=== PATIENT | male | born 1950 | race Caucasian/White ===

== ENCOUNTER → 2018-12-20 08:36 | Outpatient (CLI) | payer BC, SELFPAY ==
[2018-12-20 10:15] LABS: Absolute Lymphocyte Count 1.77 X10^3/ul (0.83-4.51); Absolute Neutrophil Count 3.4 X10^3/uL (2.0-7.7); Basophil# 0.07 X10^3/uL; Basophil% 1.2 % (0-1); Eosinophil# 0.23 X10^3/uL; Eosinophils% 3.9 % (0-5); Hematocrit 46.4 % (40-54); Hemoglobin 15.9 g/dl (13.0-16.5); Lymphocyte # 1.77 X10^3/ul (4.0); Lymphocyte % 29.9 % (19-41); Mean Corp Hgb Conc 34.3 g/gl (32-36); Mean Corpuscular Hgb 32.1 pg (27.0-32.0); Mean Corpuscular Volume 93.7 fL (80-94); Mean Platelet Vol. 11.7 fl (6.2-12.0); Monocyte# 0.43 X10^3/uL; Monocyte% 7.3 % (0-10); Neutrophil # 3.41 X10^3/uL (2.7-7.7); Neutrophil % 57.5 % (47-70); Platelet Count 176 K/mm3 (150-450); RBC Distribution Width CV 12.6 % (11.6-14.6); RBC Distribution Width SD 42.5 fl (35.1-43.9); Red Blood Count 4.95 M/mm3 (4.6-6.2); White Blood Count 5.9 K/mm3 (4.4-11.0)
[2018-12-20 10:19] LABS: POSITIVE COUNT NO; POSITIVE DIFFERENTIAL NO; POSITIVE MORPHOLOGY NO
[2018-12-20 10:31] LABS: Anion Gap 12 (5-15); BUN 18 mg/dL (7-18); BUN/Creat Ratio 20.5 RATIO (10-20); Chloride 106 mmol/L (98-107); Creatinine, Serum 0.88 mg/dL (0.70-1.30); EST Glomerular Filtration Rate 91 mL/min (>60); Est Glom Filt Rate - Afr Amer 111 mL/min (>60); Glucose 105 mg/dL (74-106); PSA,Total - Annual Screen 1.44 ng/mL (0.00-4.00); Potassium 4.1 mmol/L (3.5-5.1); Sodium Level 142 mmol/L (136-145)
== END ==
PROVIDERS: Family Provider Family Medicine; PCP Family Medicine; Visit Provider Family Medicine
DX: I10 Essential (primary) hypertension (principal); Z12.5 Encounter for screening for malignant neoplasm of prostate; G40.209 Localization-related (focal) (partial) symptomatic epilepsy and epileptic syndromes with complex partial seizures, not intractable, without status epilepticus
CPT/HCPCS: 36415; 80048; 84153; 85025; G0103

== ENCOUNTER → 2020-01-13 08:05 | Outpatient (CLI) | payer BC, SELFPAY ==
[2020-01-13 10:33] LABS: Anion Gap 4 (5-15); BUN 18 mg/dL (7-18); BUN/Creat Ratio 21.9 RATIO (10-20); Calcium,Total 9.3 mg/dL (8.5-10.1); Chloride 111 mmol/L (98-107); Cholesterol 192 mg/dL (200); Creatinine, Serum 0.82 mg/dL (0.70-1.30); EST Glomerular Filtration Rate 98 mL/min (>60); Est Glom Filt Rate - Afr Amer 119 mL/min (>60); Glucose 97 mg/dL (74-106); High Density Lipoprotein 38 mg/dL; PSA,Total - Annual Screen 1.07 ng/mL (0.00-4.00); Potassium 4.6 mmol/L (3.5-5.1); Sodium Level 142 mmol/L (136-145); Triglycerides 73 mg/dL; Very Low Density Lipoprotein 15 mg/dL (5-40)
== END ==
PROVIDERS: PCP Family Medicine; Visit Provider Family Medicine
DX: I10 Essential (primary) hypertension (principal); Z12.5 Encounter for screening for malignant neoplasm of prostate
CPT/HCPCS: 36415; 80048; 80061; 84153; G0103

== ENCOUNTER → 2021-01-11 11:37 | Outpatient (CLI) | payer MEDICARE, OTHER, SELFPAY ==
[2021-01-11 15:30] LABS: Absolute Lymphocyte Count 2.71 X10^3/uL (0.83-4.51); Absolute Neutrophil Count 3.6 X10^3/uL (2.0-7.7); Basophil# 0.12 X10^3/uL; Basophil% 1.6 % (0-1); Eosinophil# 0.28 X10^3/uL; Eosinophils% 3.8 % (0-5); Hematocrit 48.8 % (40-54); Hemoglobin 16.4 g/dL (13.0-16.5); Lymphocyte # 2.71 X10^3/ul (4.0); Mean Corp Hgb Conc 33.6 g/dL (32-36); Mean Corpuscular Hgb 31.7 pg (27.0-32.0); Mean Corpuscular Volume 94.2 fL (80-94); Mean Platelet Vol. 11.6 fl (6.2-12.0); Monocyte% 8.2 % (0-10); NRBC Flagged by Analyzer 0 % (0-5); Neutrophil # 3.58 X10^3/uL (2.7-7.7); Neutrophil % 48.9 % (47-70); Platelet Count 179 K/mm3 (150-450); RBC Distribution Width CV 12.4 % (11.6-14.6); RBC Distribution Width SD 42.7 fl (35.1-43.9); Red Blood Count 5.18 M/mm3 (4.6-6.2); White Blood Count 7.3 K/mm3 (4.4-11.0)
[2021-01-11 15:42] LABS: AST(SGOT) 95 U/L (15-37); Alanine Aminotransfer ALT/SGPT 128 U/L (16-61); Albumin, Serum 3.7 g/dL (3.2-5.0); Alkaline Phosphatase 76 U/L (45-117); Anion Gap 7 (5-15); BUN 14 mg/dL (7-18); BUN/Creat Ratio 16.4 RATIO (10-20); Calcium,Total 9.2 mg/dL (8.5-10.1); Chloride 109 mmol/L (98-107); Cholesterol 180 mg/dL (200); Creatinine, Serum 0.85 mg/dL (0.70-1.30); EST Glomerular Filtration Rate 94 mL/min (>60); Est Glom Filt Rate - Afr Amer 114 mL/min (>60); Globulin 3.7 g/dL (2.2-4.2); Glucose 83 mg/dL (74-106); High Density Lipoprotein 37 mg/dL; PSA,Total - Annual Screen 1.25 ng/mL (0.00-4.00); Potassium 4.3 mmol/L (3.5-5.1); Protein, Total 7.4 g/dL (6.4-8.2); Sodium Level 141 mmol/L (136-145); Triglycerides 124 mg/dL; Very Low Density Lipoprotein 25 mg/dL (5-40)
== END ==
PROVIDERS: PCP Family Medicine; Referring Provider Family Medicine; Visit Provider Family Medicine
DX: I10 Essential (primary) hypertension (principal); Z12.5 Encounter for screening for malignant neoplasm of prostate
CPT/HCPCS: 36415; 80053; 80061; 84153; 85025; G0103

== ENCOUNTER → 2021-01-16 08:33 | Outpatient (CLI) | payer MEDICARE, OTHER, SELFPAY ==
--- NOTE | 2021-01-16 08:37 | VDLE_ITS ---
Reason For Study: Swelling of limb Procedure LEFT This is a venous duplex using B-mode, color GSV is normal. flow and spectral Doppler. CFV is compressible, spontaneous, phasic, Exam performed in department. competent, and demonstrates normal A preliminary report was called and/or faxed augmentation. to Jillian. FV is compressible, spontaneous, phasic, competent and demonstrates normal augmentation. POP V is compressible, spontaneous, phasic, competent and demonstrates normal augmentation. T/P Trunk is compressible. PTV is compressible. LT PerV is compressible. Interpretation Summary Deep veins of the left lower extremity are patent and compressible segmentally. There is no evidence of left lower extremity deep vein thrombosis. Valvular competence appears intact within the proximal deep venous system on the left . The left great saphenous vein appears patent and compressible segmentally. Ordering Physician: Behzad Walsh Referring Physician: Behzad Walsh Performed By: Mary Ellen Delgado RVT
== END ==
PROVIDERS: PCP Family Medicine; Referring Provider Family Medicine; Visit Provider Family Medicine
DX: M79.89 Other specified soft tissue disorders (principal)
CPT/HCPCS: 93971

== ENCOUNTER → 2021-01-18 09:20 | Outpatient (CLI) | payer MEDICARE, OTHER, SELFPAY ==
--- NOTE | 2021-01-18 09:23 | US_ITS ---
STUDY: ABDOMINAL ULTRASOUND - RIGHT UPPER QUADRANT REASON FOR VISIT: Male, 70 years old Elevated Liver Enzymes TECHNIQUE: Ultrasound evaluation of the right upper quadrant was performed with real-time and static fox-scale imaging. TECHNICAL QUALITY: Limited. Examination limited by bowel gas. COMPARISON: None. FINDINGS: Liver: The liver measures 15.2 cm. There is increased echogenicity consistent with fatty infiltration. The bile ducts are within normal limits. There is hepatic color flow. The direction of portal flow is hepatopetal. There is no demonstrated mass lesion. Gallbladder: There is a contracted gallbladder. The gallbladder wall measures 3 mm. There is a negative sonographic Elizabeth''s sign. There is no pericholecystic fluid. There are no gallstones. Common Bile Duct (C.B.D.): The common bile duct measures 5 mm. Pancreas: There is nonvisualization of the pancreas due to overlying bowel gas. Right Kidney: Normal size of the right kidney. The right kidney measures 11.6 cm x 6.37 x 4.8 cm. Normal renal cortex. The right cortex measures 1.5 cm. There is no demonstrated renal mass or cyst. There is no right hydronephrosis. US/Abdomen Limited IMPRESSION: Fatty infiltration of the liver. Contracted gallbladder. Electronically Signed: Buck Chaves MD at 12:19 EST , Service support ,
== END ==
PROVIDERS: PCP Family Medicine; Referring Provider Family Medicine; Visit Provider Family Medicine
DX: R74.8 Abnormal levels of other serum enzymes (principal)
CPT/HCPCS: 76705

== ENCOUNTER 2022-01-14 09:17 | Outpatient (CLI) | payer MEDICARE, OTHER, SELFPAY ==
[2022-01-14 10:17] LABS: Absolute Lymphocyte Count 2.42 X10^3/uL (0.83-4.51); Absolute Neutrophil Count 2.9 X10^3/uL (2.0-7.7); Basophil# 0.12 X10^3/uL; Basophil% 1.9 % (0-1); Eosinophil# 0.34 X10^3/uL; Eosinophils% 5.3 % (0-5); Hematocrit 46.2 % (40-54); Lymphocyte # 2.42 X10^3/ul (0.83-4.51); Lymphocyte % 37.8 % (19-41); Mean Corp Hgb Conc 34.6 g/dL (32-36); Mean Corpuscular Hgb 32.2 pg (27.0-32.0); Mean Platelet Vol. 11.1 fl (6.2-12.0); Monocyte# 0.58 X10^3/uL; NRBC Flagged by Analyzer 0 % (0-5); Neutrophil # 2.92 X10^3/uL (2.7-7.7); Neutrophil % 45.5 % (47-70); Platelet Count 196 K/mm3 (150-450); RBC Distribution Width SD 44.1 fl (35.1-43.9); Red Blood Count 4.97 M/mm3 (4.6-6.2); White Blood Count 6.4 K/mm3 (4.4-11.0)
[2022-01-14 10:49] LABS: AST(SGOT) 64 U/L (15-37); Alanine Aminotransfer ALT/SGPT 96 U/L (16-61); Albumin, Serum 3.5 g/dL (3.2-5.0); Alkaline Phosphatase 75 U/L (45-117); Anion Gap 3 (5-15); BUN 16 mg/dL (7-18); BUN/Creat Ratio 19.3 RATIO (10-20); Bilirubin, Direct 0.15 mg/dL (0.00-0.30); Calcium,Total 9.2 mg/dL (8.5-10.1); Chloride 110 mmol/L (98-107); Cholesterol 162 mg/dL (200); Creatinine, Serum 0.83 mg/dL (0.70-1.30); EST Glomerular Filtration Rate 97 mL/min (>60); Est Glom Filt Rate - Afr Amer 118 mL/min (>60); Globulin 3.6 g/dL (2.2-4.2); Glucose 97 mg/dL (74-106); High Density Lipoprotein 36 mg/dL; PSA,Total - Annual Screen 1.77 ng/mL (0.00-4.00); Potassium 4.3 mmol/L (3.5-5.1); Protein, Total 7.1 g/dL (6.4-8.2); Sodium Level 140 mmol/L (136-145); Triglycerides 91 mg/dL; Very Low Density Lipoprotein 18 mg/dL (5-40)
== END 2022-01-14 23:59 | disposition home or self-care (01) ==
LOC: MFPLAB 09:23
PROVIDERS: PCP Family Medicine; Referring Provider Family Medicine; Visit Provider Family Medicine
DX: I10 Essential (primary) hypertension (principal); Z12.5 Encounter for screening for malignant neoplasm of prostate; R74.8 Abnormal levels of other serum enzymes; Z13.220 Encounter for screening for lipoid disorders
CPT/HCPCS: 36415; 80053; 80061; 82248; 84153; 85025; G0103

== ENCOUNTER → 2023-01-23 | Outpatient (CLI) | payer MEDICARE, OTHER, SELFPAY ==
--- NOTE | 2023-01-23 10:47 | VDLE_ITS ---
Reason For Study: Swelling RIGHT LEFT CFV is compressible, spontaneous, phasic, CFV is compressible, spontaneous, phasic, competent and demonstrates normal competent, and demonstrates normal augmentation. augmentation. Procedure FV is compressible, spontaneous, phasic, This is a venous duplex using B-mode, color competent and demonstrates normal flow and spectral Doppler. augmentation. Exam performed in department. POP V is compressible, spontaneous, phasic, A preliminary report was called and/or faxed competent and demonstrates normal to Mikayla WALSH. augmentation. T/P Trunk is compressible. Acute deep vein thrombosis is noted in the PTV and Peroneal V. Acute superficial vein thrombosis is noted in the GSV from prox to distal calf. Thrombus filled varicose veins noted in the prox to distal calf. VL/Venous Duplex US, Unilateral Interpretation Summary Acute deep vein thrombosis is noted in the left posterior tibial vein, left per capone vein. Acute superficial vein thrombosis is noted in the left great saphenous vein and adjacent varicosities in the calf. Ordering Physician: Danilo Melton Referring Physician: Danilo Melton MD Performed By: Mary Ellen Delgado RVT
== END | disposition home or self-care (01) ==
LOC: CVS 10:44
PROVIDERS: PCP Family Medicine; Visit Provider Family Medicine
DX: M79.89 Other specified soft tissue disorders (principal)
CPT/HCPCS: 93971

== ENCOUNTER → 2023-08-13 | Outpatient (CLI) | payer MEDICARE, OTHER, SELFPAY ==
--- NOTE | 2023-08-13 13:28 | VDLE_ITS ---
Reason For Study: LLE PAIN RIGHT LEFT CFV is compressible, spontaneous, phasic, CFV is compressible, spontaneous, phasic, competent and demonstrates normal competent, and demonstrates normal augmentation. augmentation. Procedure FV is compressible, spontaneous, phasic, This is a venous duplex using B-mode, color competent and demonstrates normal flow and spectral Doppler. augmentation. Exam performed in department. POP V is compressible, spontaneous, phasic, A preliminary report was called and/or faxed competent and demonstrates normal to Dr. Melton @ 2:05 pm @ [phone]. augmentation. T/P Trunk is compressible. PTV is compressible. LT PerV is compressible. GSV is compressible from prox thigh to SFJ. GSV mid thigh to ankle are NON-COMPRESSIBLE. Varicosities noted in the prox calf area are NON-COMPRESSIBLE. VL/Venous Duplex US, Unilateral Interpretation Summary Acute superficial vein thrombosis noted in the left great saphenous vein from m id thigh to ankle, left calf varicosities. Deep veins of the left lower extremity are patent and compressible segmentally. There is no evidence of left lower extremity deep vein thrombosis Ordering Physician: Danilo Melton Referring Physician: Danilo Melton Performed By: Virginie Cook, FAYE, RVT
== END | disposition home or self-care (01) ==
LOC: CVS 13:26
PROVIDERS: PCP Family Medicine; Referring Provider Family Medicine; Visit Provider Family Medicine
DX: M79.605 Pain in left leg (principal); M79.89 Other specified soft tissue disorders
CPT/HCPCS: 93971

== ENCOUNTER → 2024-04-18 | Outpatient (CLI) | payer MEDICARE, OTHER, SELFPAY ==
[2024-04-18 17:40] LABS: Hematocrit 48.7 % (40-54); Hemoglobin 16.1 g/dL (13.0-16.5); Mean Corp Hgb Conc 33.1 g/dL (32-36); Mean Corpuscular Hgb 31.4 pg (27.0-32.0); Mean Corpuscular Volume 94.9 fL (80-94); Mean Platelet Vol. 11.2 fl (6.2-12.0); Platelet Count 212 K/mm3 (150-450); RBC Distribution Width CV 12.9 % (11.6-14.6); RBC Distribution Width SD 45.7 fl (35.1-43.9); Red Blood Count 5.13 M/mm3 (4.6-6.2); White Blood Count 9.5 K/mm3 (4.4-11.0)
[2024-04-18 18:28] LABS: ALB/GLOB Ratio 0.9 RATIO (0.9-2.4); AST(SGOT) 70 U/L (15-37); Alanine Aminotransfer ALT/SGPT 95 U/L (16-61); Albumin, Serum 3.6 g/dL (3.2-5.0); Alkaline Phosphatase 83 U/L (45-117); Anion Gap 7 (5-15); BUN 20 mg/dL (7-18); BUN/Creat Ratio 24.8 RATIO (10-20); Calcium,Total 9.6 mg/dL (8.5-10.1); Chloride 108 mmol/L (98-107); Creatinine, Serum 0.81 mg/dL (0.70-1.30); EST Glomerular Filtration Rate 99 mL/min (>60); Est Glom Filt Rate - Afr Amer 120 mL/min (>60); Globulin 3.8 g/dL (2.2-4.2); Glucose 99 mg/dL (74-106); Potassium 4.2 mmol/L (3.5-5.1); Protein, Total 7.4 g/dL (6.4-8.2); Sodium Level 138 mmol/L (136-145)
[2024-04-22 18:17] LABS: Microalbumin,Random Urine 35.7 mg/L (NO RANGE EST.); Microalbumin:Creatinine Ratio 17.5 mg/g CRE (<30 mg/g CRE)
== END | disposition home or self-care (01) ==
PROVIDERS: PCP Family Medicine; Visit Provider Family Medicine
DX: I10 Essential (primary) hypertension (principal)
CPT/HCPCS: 36415; 80053; 82043; 82570; 85027

== ENCOUNTER → 2024-05-03 | Outpatient (CLI) | payer MEDICARE, OTHER, SELFPAY ==
--- NOTE | 2024-05-03 09:32 | VDLE_ITS ---
Reason For Study: Hx DVT RIGHT LEFT CFV is compressible, spontaneous, phasic, CFV is compressible, spontaneous, phasic, competent and demonstrates normal competent, and demonstrates normal augmentation. augmentation. Procedure PTV is compressible. This is a venous duplex using B-mode, color Acute deep vein thrombosis is noted in the flow and spectral Doppler. left FV mid-distal, PopV, T/P Trunk and Exam performed in department. PeroV. A preliminary report was called and/or faxed Thrombus filled varicose vein noted in the to Johana WALSH. left mid thigh to prox calf. VL/Venous Duplex US, Unilateral Interpretation Summary Acute deep vein thrombosis is noted in the left femoral vein, popliteal vein, t ibioperoneal trunk vein, peroneal vein Acute superficial vein thrombosis noted in left thigh and calf varicosities Ordering Physician: Danilo Melton Referring Physician: Danilo Melton Performed By: Mary Ellen Delgado RVT and Student
== END | disposition home or self-care (01) ==
LOC: CVS 09:30
PROVIDERS: PCP Family Medicine; Referring Provider Family Medicine; Visit Provider Family Medicine
DX: Z86.718 Personal history of other venous thrombosis and embolism (principal)
CPT/HCPCS: 93971

== ENCOUNTER → 2024-05-13 | Outpatient (CLI) | payer MEDICARE, OTHER, SELFPAY ==
--- NOTE | 2024-05-13 08:57 | US_ITS ---
STUDY: ABDOMINAL ULTRASOUND - ELASTOGRAPHY REASON FOR VISIT: Male, 73 years old. Abnormal liver function tests. TECHNIQUE: Liver stiffness measurements were obtained on a [employer] RS 85 ultrasound machine using a CA 1-7 probe following the SRU guidelines. 3 measurements were obtained using a 2-D-SWE method. TheIQR/M was 12% suggesting a quality data set. TECHNICAL QUALITY: Adequate. COMPARISON: 01/18/2021 FINDINGS: Liver: There is no demonstrated mass lesion. Median liver stiffness measured 6.97 kPa. Abdomen: 1.5 cm echogenic area within the gallbladder may represent a stone or tumefactive sludge or polyp. US/ABD Limited w/ Elastography IMPRESSION: Liver stiffness measures 6.97 kPa compatible with F2-F3 Metavir score. Possible gallstone, tumefactive sludge, or polyp. Electronically Signed: Willie Mayen MD at 12:25 EDT ,
== END | disposition home or self-care (01) ==
LOC: US 08:53
PROVIDERS: PCP Family Medicine; Referring Provider Family Medicine; Visit Provider Family Medicine
DX: R74.01 Elevation of levels of liver transaminase levels (principal)
CPT/HCPCS: 76705; 76981

== ENCOUNTER → 2024-11-03 | Outpatient (CLI) | payer MEDICARE, OTHER, SELFPAY ==
--- NOTE | 2024-11-03 07:06 | US_ITS ---
EXAM: US ABDOMEN LIMITED, RIGHT UPPER QUADRANT CLINICAL INDICATION: RUQ pain after eating, known sludge, repeat testing TECHNIQUE: Real-time ultrasound of the right upper quadrant with image documentation. COMPARISON: Ultrasound liver elastography 05/13/2024, US Abdomen Limited RUQ dated 01/18/2021 FINDINGS: LIVER: Coarse echogenicity of the liver again noted suggestive of cirrhosis. GALLBLADDER: Gallbladder is not well seen. There appear to be multiple small stones within the gallbladder. No gallbladder wall thickening is demonstrated. No pericholecystic fluid. Negative sonographic Elizabeth''s sign. COMMON BILE DUCT: Common bile duct measures 4 mm in diameter nati hepatis. PANCREAS: Unremarkable as visualized. No focal abnormality is demonstrated in the pancreas. No pancreatic ductal dilatation. RIGHT KIDNEY: Normal. There is no hydronephrosis. No shadowing calculus. No focal lesion or perinephric collection is demonstrated. US/Abdomen Limited IMPRESSION: 1. Parenchymal liver disease consistent with cirrhosis. 2. Cholelithiasis. Electronically Signed: Rei Denson MD at 16:44 EST ,
== END | disposition home or self-care (01) ==
LOC: US 07:04
PROVIDERS: PCP Family Medicine; Referring Provider Family Medicine; Visit Provider Family Medicine
DX: K82.8 Other specified diseases of gallbladder (principal)
CPT/HCPCS: 76705

== ENCOUNTER → 2024-12-05 | Outpatient (CLI) | payer MEDICARE, OTHER, SELFPAY ==
--- NOTE | 2024-12-05 07:15 | US_ITS ---
STUDY: ABDOMINAL ULTRASOUND - ELASTOGRAPHY REASON FOR VISIT: Male, 73 years old. Cirrhosis of the liver. TECHNIQUE: Liver stiffness measurements were obtained on a [employer] RS 85 ultrasound machine using a CA 1-7 probe following the U guidelines. 3 measurements were obtained using a 2-D-SWE method. TheIQR/M was 12% suggesting a quality data set. TECHNICAL QUALITY: Adequate. COMPARISON: None. FINDINGS: Liver: There is no demonstrated mass lesion. Median liver stiffness measured 10.8 kPa. Abdomen: There is no demonstrated mass lesion. US/Elastography Parenchyma/Organ IMPRESSION: Liver stiffness measures 10.8 kPa compatible with F2-F3 (Mild to moderate liver fibrosis) Metavir score. Electronically Signed: Buck Chaves MD at 14:10 EST ,
== END | disposition home or self-care (01) ==
LOC: US 07:13
PROVIDERS: PCP Family Medicine; Referring Provider Family Medicine; Visit Provider Family Medicine
DX: K74.60 Unspecified cirrhosis of liver (principal)
CPT/HCPCS: 76981

== ENCOUNTER → 2025-04-18 | Outpatient (CLI) | payer MEDICARE, OTHER, SELFPAY ==
[2025-04-18 15:24] LABS: Absolute Lymphocyte Count 2.82 X10^3/uL (0.83-4.51); Absolute Neutrophil Count 3.7 X10^3/uL (2.0-7.7); Basophil# 0.14 X10^3/uL; Basophil% 1.8 % (0-1); Eosinophil# 0.38 X10^3/uL; Eosinophils% 4.9 % (0-5); Hematocrit 49.1 % (40-54); Hemoglobin 16.6 g/dL (13.0-16.5); Lymphocyte # 2.82 X10^3/ul (0.83-4.51); Mean Corp Hgb Conc 33.8 g/dL (32-36); Mean Corpuscular Volume 94.6 fL (80-94); Mean Platelet Vol. 11.8 fl (6.2-12.0); Monocyte# 0.77 X10^3/uL; Monocyte% 9.8 % (0-10); NRBC Flagged by Analyzer 0 % (0-5); Neutrophil # 3.68 X10^3/uL (2.7-7.7); Platelet Count 201 K/mm3 (150-450); RBC Distribution Width SD 44.7 fl (35.1-43.9); Red Blood Count 5.19 M/mm3 (4.6-6.2); White Blood Count 7.8 K/mm3 (4.4-11.0)
[2025-04-18 15:41] LABS: Ammonia 20.8 umol/L (16-60)
[2025-04-18 15:55] LABS: ALB/GLOB Ratio 1.4 RATIO (0.9-2.4); AST(SGOT) 90 U/L (<=37); Alanine Aminotransfer ALT/SGPT 102 U/L (<=46); Albumin, Serum 4.2 g/dL (3.4-4.8); Alkaline Phosphatase 80 U/L (40-129); Anion Gap 11 (5-15); BUN 14 mg/dL (4-19); BUN/Creat Ratio 15.6 RATIO (10-20); Calcium,Total 9.7 mg/dL (7.6-11.0); Carbon Dioxide 23.2 mmol/L (21.0-32.0); Chloride 104 mmol/L (98-108); Cholesterol 184 mg/dL (<=200); Creatinine, Serum 0.92 mg/dL (0.70-1.20); EST Glomerular Filtration Rate 87 (>60); Globulin 3.1 g/dL (2.2-4.2); Glucose 99 mg/dL (70-99); High Density Lipoprotein 38 mg/dL; Low Density Lipoprotein Calc. 124 mg/dL; PSA,Total - Annual Screen 2.28 ng/mL (0.02-4.00); Potassium 4.7 mmol/L (3.3-5.1); Protein, Total 7.4 g/dL (5.9-8.4); Sodium Level 139 mmol/L (133-145); Total Bilirubin 1.05 mg/dL (0.00-1.30); Triglycerides 113 mg/dL; Very Low Density Lipoprotein 23 mg/dL (5-40); cholesterol:hdl ratio screen 4.91
[2025-04-18 16:20] LABS: Microalbumin:Creatinine Ratio 96.5 mg/g CRE
[2025-04-20 04:07] LABS: GGTP 24 IU/L (0-65)
== END | disposition home or self-care (01) ==
LOC: MFPLAB 11:30
PROVIDERS: PCP Family Medicine; Referring Provider Family Medicine; Visit Provider Family Medicine
DX: K76.0 Fatty (change of) liver, not elsewhere classified (principal); L40.50 Arthropathic psoriasis, unspecified; G40.209 Localization-related (focal) (partial) symptomatic epilepsy and epileptic syndromes with complex partial seizures, not intractable, without status epilepticus; I10 Essential (primary) hypertension; Z12.5 Encounter for screening for malignant neoplasm of prostate
CPT/HCPCS: 36415; 80053; 80061; 82043; 82140; 82570; 82977; 84153; 85025; G0103

== ENCOUNTER → 2025-07-28 | Outpatient (CLI) | payer MEDICARE, OTHER, SELFPAY ==
--- NOTE | 2025-07-28 07:17 | US_ITS ---
PROCEDURE: ABD LIMITED W/ ELASTOGRAPHY REASON FOR EXAM: ELEVATED LIVER ENZYMES COMPARISON: Prior study dated November 03, 2024. TECHNIQUE: Procedure Code: [id number] Modality: US Procedure: ABD LIMITED W/ ELASTOGRAPHY Right upper quadrant abdominal ultrasound. [facility] Elast[facility] shear wave elastography for non-invasive assessment of liver tissue stiffness. [facility] EPIQ Elite. FINDINGS: LIVER: Size: Unremarkable Length: 14.8 cm Echotexture: Diffusely echogenic suggesting fatty infiltration Contour: Normal Lesions: None identified Elastography: EQI Med: 5.5 kPa EQI Med Yazan: 1.36 m/s IQR/Med: 22.4 %* GALLBLADDER: Normal COMMON BILE DUCT: Normal . PANCREAS: Normal Visualized portions of the right kidney are unremarkable. No right upper quadrant ascites. US/ABD Limited w/ Elastography IMPRESSION: NO TO MILD HEPATIC FIBROSIS Fatty infiltration of the liver. Reference Values: SRU <1.37 m/s (5.7kPa): No to mild fibrosis 1.37 m/s - 2.2 m/s: Moderate to severe fibrosis >2.2 m/s (15kPa): Significant fibrosis / cirrhosis METAVIR Score F2 or higher: 1.34 m/s (5.7kPa) F3 or higher: 1.55 m/s (7.3kPa) F4: 1.80 m/s (10kPa) * If the IQR/Med is >30%, the variance in the measurements is a large and the a ccuracy of the measurement may be in question. Reading Location: [place]
--- OUTSIDE RECORDS SUMMARY | 2025-07-28 07:34 | XMS RPT_ITS | CCD ---
Author Organization [facility] Care Team Providers Care Character Actor Name Role Phone Dr. Danilo Melton Primary Care Provider Dr. Danilo Vila Attending Provider Unavailable Primary Care Provider UnavailMAYTE Reno Attending Unavailable MAYTE GUAJARDO Attending Unavailable Dr. Danilo Melton MD Primary Care Provider [phone] Dr. Danilo Melton MD Attending Provider Dr. Danilo Melton MD Referring Provider Dr. Bay Gonzalez MD Other Provider [phone] Melton, Danilo Referring Unavailable Melton, Danilo Primary Care Unavailable Geronimo, Danilo Attending Unavailable Geronimo, Danilo Referring Unavailable Geronimo, Danilo Primary Care Unavailable Geronimo, Danilo Attending Unavailable Geronimo, Danilo Referring Unavailable Melton, Danilo Primary Care Unavailable Melton, Danilo Attending Unavailable Geronimo, Danilo Primary Care Unavailable Geronimo Danilo Attending Unavailable Bay Gonzalez Consulting Unavailable Melton, Danilo Referring Unavailable Allergies Allergy Classification Reported Allergen(s) Allergy Type Date of Onset Reaction(s) Facility (2 sources) Codeine Drug Allergy 4 [facility] (2 sources) meloxicam Drug Allergy 4 Itching [facility] (2 sources) Niacin Drug Allergy 4 GI intolerance [facility] Medications Current Medications Medication Drug Class(es) Dates Sig (Normalized) Sig (Original) ascorbic acid 1000 mg oral tablet (2 sources) Vitamin C End: 12-18-2023 take 1 tablet by mouth in the morning Ascorbic Acid (vitamin C) 1000 MG tablet Take 1,000 mg by mouth in the morning. 0 12/18/2023 Discontinued ascorbic acid 113 mg / copper gluconate 0.4 mg / docosahexaenoic acid 87.5 mg / eicosapentaenoic acid 163 mg / lutein 2.5 mg / tocopherol acetate 100 unt / zeaxanthin 0.5 mg / zinc oxide 17.4 mg oral capsule (2 sources) Vitamin C End: 12-18-2023 Multiple Vitamins-Minerals (PreserVision AREDS 2) capsule as directed Orally 0 12/18/2023 Discontinued aspirin 81 mg delayed release oral tablet (2 sources) Platelet Aggregation Inhibitor, Nonsteroidal Anti-inflammatory Drug End: 12-18-2023 take 1 tablet by mouth in the morning aspirin (Aspirin EC Low Strength) 81 MG EC tablet Take 81 mg by mouth in the morning. 0 12/18/2023 Discontinued levETIRAcetam 500 mg oral tablet (6 sources) Start: 12-19-2022 End: 06-15-2024 take 1 tablet by mouth in the morning levETIRAcetam (Keppra) 500 MG tablet Indications: Seizures (CMS/HCC) Take 1 tablet (500 mg) by mouth in the morning and 1 tablet (500 mg) before bedtime. 90 tablet 3 12/18/2023 06/15/2024 Active Start: 12-19-2022 End: 12-18-2023 take 1 tablet by mouth at bedtime levETIRAcetam (Keppra) 750 MG tablet Take 750 mg by mouth at bedtime 0 12/19/2022 12/18/2023 Discontinued 24 hr metoprolol succinate 50 mg extended release oral tablet (4 sources) beta-Adrenergic Regan Start: 09-30-2023 take 1 tablet by mouth every twenty-four hours in the morning metoprolol succinate XL (Toprol-XL) 50 MG 24 hr tablet Take 50 mg by mouth in the morning. 0 09/30/2023 Active End: 12-18-2023 take 1 tablet by mouth once daily metoprolol tartrate (Lopressor) 50 MG tablet Take 50 mg by mouth 1 (one) time each day at the same time 0 12/18/2023 Discontinued milk thistle extract 175 mg oral capsule (2 sources) End: 12-18-2023 Milk Thistle 175 MG capsule as directed Orally 0 12/18/2023 Discontinued zinc gluconate 50 mg oral tablet (2 sources) End: 12-18-2023 take 1 tablet by mouth in the morning zinc gluconate 50 MG tablet Take 50 mg by mouth in the morning. 0 12/18/2023 Discontinued Problems Active Problems Problem Classification Problem Date Documented Da te Episodic/Chronic Epilepsy; convulsions (4 sources) Seizure; Translations: [Unspecified convulsions] Onset: 12-18-2023 12-18-2023 Episodic Essential hypertension (2 sources) Hypertensive disorder; Translations: [Essential (primary) hypertension] Onset: 12-18-2023 12-18-2023 Chronic Other liver diseases (1 source) Fatty (change of) liver, not elsewhere classified; Translations: [Fatty (change of) liver, not elsewhere classified] Onset: 04-21-2025 Chronic Other liver diseases (1 source) Unspecified cirrhosis of liver; Translations: [Unspecified cirrhosis of liver] Onset: 12-28-2024 Chronic Residual codes; unclassified (2 sources) Obstructive sleep apnea syndrome; Translations: [Obstructive sleep apnea (adult) (pediatric)] Onset: 12-18-2023 12-18-2023 Chronic Unclassified (1 source) Elevation of levels of liver transaminase levels; Translations: [Elevation of levels of liver transaminase levels] Onset: 05-27-2024 Past or Other Problems Problem Classification Problem Date Documented Da te Episodic/Chronic Biliary tract disease (1 source) Other specified diseases of gallbladder; Translations: [Other specified diseases of gallbladder] Onset: 12-08-2024 Episodic Results Test Name Value Interpretation Reference Range Facility Microalb:Creat Ratio,Random URon 05-09-2025 MALB:CREAT 9.6 mg/g CRE Normal [facility] Comment on above: Result Comment: AMENDED REPORT 05/09/25 1118 MALB:CREAT previously reported as: 96.5 mg/g CRE Performed By: #### L 502.0250, L100.0100, L501.9910, L500.4100, L501.5101, L500.4050, L503.5510 #### [facility] Laboratory [address] [place], [address] L501.5101on 04-20-2025 GGTP 24 IU/L Normal 0-65 [facility] Comment on above: Result Comment: Perf ormed at: [facility] [address], [place] [id number] Toolmaker Helper: Miguel Melo PhD, Phone: [phone] Performed By: #### L 502.0250, L100.0100, L501.9910, L500.4100, L501.5101, L500.4050, L503.5510 #### [facility] [address] [place], [address] Absolute lymphocyte countOrd ered By: Danilo Melton on 04-18-2025 Lymphocytes Auto (Unsp spec) [#/Vol] 2.82 10*3/uL 0.83-4.51 [facility] Absolute neutrophil countOrd ered By: Danilo Melton on 04-18-2025 Neutrophils (Bld) [#/Vol] 3.7 10*3/uL 2.0-7.7 [facility] Ammoniaon 04-18-2025 Ammonia (P) [Moles/Vol] 20.8 umol/L Normal 16-60 [facility] Comment on above: Performed By: #### L 502.0250, L100.0100, L501.9910, L500.4100, L501.5101, L500.4050, L503.5510 #### [facility] [address] [facility] [place], [address] Anion gap in Serum or Plasma Ordered By: Danilo Melton on 04-18-2025 Anion gap [Moles/Vol] 11 mmol/L 5-15 [facility] Automated lymphocyte count a s percentage of total leukocytesOrdered By: Danilo Melton on 04-18-2025 Lymphocytes/100 WBC Auto (Unsp spec) 36.0 % 19-41 [facility] BUN/creatinine ratioOrdered By: Danilo Melton on 04-18-2025 Urea nitrogen/Creatinine [Mass ratio] 15.6 mg/mg 10-20 [facility] Basophil percentageOrdered B y: Danilo Melton on 04-18-2025 Basophils/100 WBC (Bld) 1.8 % High 0-[address] [facility] Bilirubin, totalOrdered By: Danilo Melton on 04-18-2025 Bilirubin [Mass/Vol] 1.05 mg/dL 0.00-1.30 [facility] CBC W/Diff, Automatedon 06-0 Absolute Lymph 2.82 X10 3/uL Normal 0.83-4.51 [facility] Comment on above: Performed By: #### L 502.0250, L100.0100, L501.9910, L500.4100, L501.5101, L500.4050, L503.5510 #### [facility] [address] [place], [address] Absolute Neut 3.7 X10 3/uL Normal 2.0-7.7 [facility] Comment on above: Performed By: #### L 502.0250, L100.0100, L501.9910, L500.4100, L501.5101, L500.4050, L503.5510 #### [facility] [address] [place], [address] Basophils/100 WBC (Bld) 1.8 % High 0-[address] [facility] Comment on above: Performed By: #### L 502.0250, L100.0100, L501.9910, L500.4100, L501.5101, L500.4050, L503.5510 #### [facility] [address] [place], [address] Eosinophils/100 WBC (Bld) 4.9 % Normal 0-5 [facility] Comment on above: Performed By: #### L 502.0250, L100.0100, L501.9910, L500.4100, L501.5101, L500.4050, L503.5510 #### [facility] [address] [place], [address] Erythrocyte distribution width (RBC) [Ratio] 13.0 % Normal 11.6-14.6 [facility] Comment on above: Performed By: #### L 502.0250, L100.0100, L501.9910, L500.4100, L501.5101, L500.4050, L503.5510 #### [facility] [address] [place], [address] Hematocrit (Bld) [Volume fraction] 49.1 % Normal 40-54 [facility] Comment on above: Performed By: #### L 502.0250, L100.0100, L501.9910, L500.4100, L501.5101, L500.4050, L503.5510 #### [facility] [address] [place], [address] Hemoglobin (Bld) [Mass/Vol] 16.6 g/dL High 13.0-16.5 [facility] Comment on above: Performed By: #### L 502.0250, L100.0100, L501.9910, L500.4100, L501.5101, L500.4050, L503.5510 #### [facility] [address] [place], [address] IG% 0.500 Normal 0.0-0.9 [facility] Comment on above: Result Comment: IG% - Immature Granulocytes (promyelocytes, myelocytes and metamyelocytes) > 1% indicates that a LEFT SHIFT is Present. Performed By: #### L 502.0250, L100.0100, L501.9910, L500.4100, L501.5101, L500.4050, L503.5510 #### [facility] [address] [place], [address] Lymphocytes/100 WBC (Bld) 36.0 % Normal 19-41 [facility] Comment on above: Performed By: #### L 502.0250, L100.0100, L501.9910, L500.4100, L501.5101, L500.4050, L503.5510 #### [facility] [address] [facility] [address] MCH (RBC) [Entitic mass] 32.0 pg Normal 27.0-32.0 [facility] Comment on above: Performed By: #### L 502.0250, L100.0100, L501.9910, L500.4100, L501.5101, L500.4050, L503.5510 #### [facility] [address] [place], [address] MCHC (RBC) [Mass/Vol] 33.8 g/dL Normal 32-36 [facility] Comment on above: Performed By: #### L 502.0250, L100.0100, L501.9910, L500.4100, L501.5101, L500.4050, L503.5510 #### [facility] [address] [place], [address] MCV (RBC) [Entitic vol] 94.6 fL High 80-94 [facility] Comment on above: Performed By: #### L 502.0250, L100.0100, L501.9910, L500.4100, L501.5101, L500.4050, L503.5510 #### [facility] [address] [place], [address] Monocytes/100 WBC (Bld) 9.8 % Normal 0-10 [facility] Comment on above: Performed By: #### L 502.0250, L100.0100, L501.9910, L500.4100, L501.5101, L500.4050, L503.5510 #### [facility] [address] [place], [address] Neutrophils/100 WBC (Bld) 47.0 % Normal 47-70 [facility] Comment on above: Performed By: #### L 502.0250, L100.0100, L501.9910, L500.4100, L501.5101, L500.4050, L503.5510 #### [facility] [address] [place], [address] Nucleated RBC (Bld) [#/Vol] 0 10*3/uL Normal 0-5 [facility] Comment on above: Performed By: #### L 502.0250, L100.0100, L501.9910, L500.4100, L501.5101, L500.4050, L503.5510 #### [facility] [address] [place], [address] Platelet mean volume (Bld) [Entitic vol] 11.8 fL Normal 6.2-12.0 [facility] Comment on above: Performed By: #### L 502.0250, L100.0100, L501.9910, L500.4100, L501.5101, L500.4050, L503.5510 #### [facility] [address] [place], [address] Platelets (Bld) [#/Vol] 201 10*3/uL Normal 150-450 [facility] Comment on above: Performed By: #### L 502.0250, L100.0100, L501.9910, L500.4100, L501.5101, L500.4050, L503.5510 #### [facility] [address] [place], [address] RBC (Bld) [#/Vol] 5.19 10*6/uL Normal 4.6-6.2 [facility] Comment on above: Performed By: #### L 502.0250, L100.0100, L501.9910, L500.4100, L501.5101, L500.4050, L503.5510 #### [facility] [address] [place], [address] RDW SD 44.7 fl High 35.1-43.9 [facility] Comment on above: Performed By: #### L 502.0250, L100.0100, L501.9910, L500.4100, L501.5101, L500.4050, L503.5510 #### [facility] [address] [place], [place], [address] WBC (Bld) [#/Vol] 7.8 10*3/uL Normal 4.4-11.0 [facility] Comment on above: Performed By: #### L 502.0250, L100.0100, L501.9910, L500.4100, L501.5101, L500.4050, L503.5510 #### [facility] [address] [facility] [address] [place], [place], [id number] Calculated very low density lipoprotein (VLDL) cholesterol measurementOrdered By: Danilo Melton on 04-18-2025 Calculated very low density lipoprotein (VLDL) cholesterol measurement 23 mg/dL 5-40 [facility] Carbon dioxide, total [Moles /volume] in Central venous bloodOrdered By: Danilo Melton on 04-18-2025 CO2 [Moles/Vol] 23.2 mmol/L 21.0-32.0 [facility] Chloride assayOrdered By: Efren Melton on 04-18-2025 Chloride [Moles/Vol] 104 mmol/L 98-108 [facility] Comprehensive Metabolic Prof ilon 04-18-2025 Albumin [Mass/Vol] 4.2 g/dL Normal 3.4-4.8 [facility] Comment on above: Performed By: #### L 502.0250, L100.0100, L501.9910, L500.4100, L501.5101, L500.4050, L503.5510 #### [facility] [address] [place], [place], [address] Albumin/Globulin [Mass ratio] 1.4 {ratio} Normal 0.9-2.4 [facility] Comment on above: Performed By: #### L 502.0250, L100.0100, L501.9910, L500.4100, L501.5101, L500.4050, L503.5510 #### [facility] [address] [place], [address] ALK PHOS 80 U/L Normal 40-129 [facility] Comment on above: Performed By: #### L 502.0250, L100.0100, L501.9910, L500.4100, L501.5101, L500.4050, L503.5510 #### [facility] [address] [place], [address] ALT [Catalytic activity/Vol] 102 U/L High <=46 [facility] Comment on above: Performed By: #### L 502.0250, L100.0100, L501.9910, L500.4100, L501.5101, L500.4050, L503.5510 #### [facility] [address] [place], [address] AST [Catalytic activity/Vol] 90 U/L High <=37 [facility] Comment on above: Performed By: #### L 502.0250, L100.0100, L501.9910, L500.4100, L501.5101, L500.4050, L503.5510 #### [facility] [address] [place], [address] Bilirubin [Mass/Vol] 1.05 mg/dL Normal 0.00-1.30 [facility] Comment on above: Performed By: #### L 502.0250, L100.0100, L501.9910, L500.4100, L501.5101, L500.4050, L503.5510 #### [facility] [address] [place], [address] BUN/CRE 15.6 RATIO Normal 10-20 [facility] Comment on above: Performed By: #### L 502.0250, L100.0100, L501.9910, L500.4100, L501.5101, L500.4050, L503.5510 #### [facility] [address] [place], [address] Calcium [Mass/Vol] 9.7 mg/dL Normal 7.6-11.0 [facility] Comment on above: Performed By: #### L 502.0250, L100.0100, L501.9910, L500.4100, L501.5101, L500.4050, L503.5510 #### [facility] [address] [place], [address] Chloride [Moles/Vol] 104 mmol/L Normal 98-108 [facility] Comment on above: Performed By: #### L 502.0250, L100.0100, L501.9910, L500.4100, L501.5101, L500.4050, L503.5510 #### [facility] [address] [place], [address] CO2 [Moles/Vol] 23.2 mmol/L Normal 21.0-32.0 [facility] Comment on above: Performed By: #### L 502.0250, L100.0100, L501.9910, L500.4100, L501.5101, L500.4050, L503.5510 #### [facility] [address] [place], [address] Creatinine [Mass/Vol] 0.92 mg/dL Normal 0.70-1.20 [facility] Comment on above: Performed By: #### L 502.0250, L100.0100, L501.9910, L500.4100, L501.5101, L500.4050, L503.5510 #### [facility] [address] [place], [address] GAP 11 Normal 5-15 [facility] Comment on above: Performed By: #### L 502.0250, L100.0100, L501.9910, L500.4100, L501.5101, L500.4050, L503.5510 #### [facility] [address] [place], [address] GFR/1.73 sq M.predicted among non-blacks MDRD (S/P/Bld) [Vol rate/Area] 87 mL/min/{1.73_m2} Normal >60 [facility] Comment on above: Result Comment: mL/m in/1.73m2 CKD-EPI Creatinine Equation (2020) Performed By: #### L 502.0250, L100.0100, L501.9910, L500.4100, L501.5101, L500.4050, L503.5510 #### [facility] [address] [place], [address] Globulin (S) [Mass/Vol] 3.1 g/dL Normal 2.2-4.2 [facility] Comment on above: Performed By: #### L 502.0250, L100.0100, L501.9910, L500.4100, L501.5101, L500.4050, L503.5510 #### [facility] [address] [place], [address] Glucose [Mass/Vol] 99 mg/dL Normal 70-99 [facility] Comment on above: Performed By: #### L 502.0250, L100.0100, L501.9910, L500.4100, L501.5101, L500.4050, L503.5510 #### [facility] [address] [place], [address] Potassium [Moles/Vol] 4.7 mmol/L Normal 3.3-5.1 [facility] Comment on above: Performed By: #### L 502.0250, L100.0100, L501.9910, L500.4100, L501.5101, L500.4050, L503.5510 #### [facility] [address] [place], [address] Sodium [Moles/Vol] 139 mmol/L Normal 133-145 [facility] Comment on above: Performed By: #### L 502.0250, L100.0100, L501.9910, L500.4100, L501.5101, L500.4050, L503.5510 #### [facility] [address] [place], [address] T PROT 7.4 g/dL Normal 5.9-8.4 [facility] Comment on above: Performed By: #### L 502.0250, L100.0100, L501.9910, L500.4100, L501.5101, L500.4050, L503.5510 #### [facility] [address] [place], [address] Urea nitrogen [Mass/Vol] 14 mg/dL Normal 4-19 [facility] Comment on above: Performed By: #### L 502.0250, L100.0100, L501.9910, L500.4100, L501.5101, L500.4050, L503.5510 #### [facility] [address] [place], [address] Eosinophil percentageOrdered By: Danilo Melton on 04-18-2025 Eosinophils/100 WBC (Bld) 4.9 % 0-5 [facility] Erythrocyte distribution wid th ratioOrdered By: Danilo Melton on 04-18-2025 Erythrocyte distribution width (RBC) [Ratio] 13.0 % 11.6-14.6 [facility] Erythrocyte distribution wid th standard deviationOrdered By: Danilo Melton on 04-18-2025 Erythrocyte distribution width (RBC) [Ratio] 44.7 fl High 35.1-43.9 [facility] Gamma glutamyl transferase ( GGT) measurementOrdered By: Danilo Melton on 04-18-2025 Amylase [Catalytic activity/Vol] 24 U/L 0-65 [facility] Comment on above: Performed at: [address] [id number] Director: Miguel Melo PhD, Phone: [phone] Glomerular filtration rate ( GFR) estimation/1.73 sq m using serum, plasma, or whole bOrdered By: Danilo Melton on 04-18-2025 GFR/1.73 sq M.predicted among non-blacks MDRD (S/P/Bld) [Vol rate/Area] 87 mL/min/{1.73_m2} >60 [facility] Comment on above: mL/min/1.73m2 CKD-EP I Creatinine Equation (2020) Hematocrit Auto (Bld) [Volum e fraction]Ordered By: Danilo Melton on 04-18-2025 Hematocrit (Bld) [Volume fraction] 49.1 % 40-54 [facility] Hemoglobin measurementOrdere d By: Danilo Melton on 04-18-2025 Hemoglobin (Bld) [Mass/Vol] 16.6 g/dL High 13.0-16.5 [facility] Immature granulocytes/100 WB C Auto (Bld)Ordered By: Danilo Melton on 04-18-2025 Immature granulocytes/100 WBC (Bld) 0.500 % 0.0-0.9 [facility] Comment on above: IG% - Immature Granu locytes (promyelocytes, myelocytes and metamyelocytes) > 1% indicates that a LEFT SHIFT is Present. LDL calc ser/plasOrdered By: Danilo Melton on 04-18-2025 Cholesterol in LDL [Mass/Vol] 124 mg/dL [facility] Comment on above: Lpuaydrduw=295-621 m g/dL & Higher Mzoz=022 mg/dL or greater Laboratory - Chemistry and C hemistry - challengeOrdered By: Danilo Melton on 04-18-2025 AST [Catalytic activity/Vol] 90 U/L High <38 [facility] Lipid Profileon 04-18-2025 CHOL:HDL 4.91 Normal [facility] Comment on above: Performed By: #### L 502.0250, L100.0100, L501.9910, L500.4100, L501.5101, L500.4050, L503.5510 #### [facility] [address] [place], [address] Cholesterol [Mass/Vol] 184 mg/dL Normal <=200 [facility] Comment on above: Result Comment: Chol esterol level, Desirable <200 mg/dL Borderline high cholesterol 200-239 mg/dL High cholesterol >=240 mg/dL Recommendations of the NCEP Adult Treatment Panel for the following risk-cutoff thresholds for the [place] population. Performed By: #### L 502.0250, L100.0100, L501.9910, L500.4100, L501.5101, L500.4050, L503.5510 #### [facility] [address] [place], [address] Cholesterol in HDL [Mass/Vol] 38 mg/dL Low [facility] Comment on above: Result Comment: Isabella onal Cholesterol Education Program (NCEP) guidelines: <40 mg/dL: Low HDL-cholesterol (major risk factor for CHD) >= 60 mg/dL: High HDL-cholesterol (negative risk factor for CHD) HDL-cholesterol is affected by a number of factors, e.g. smoking, exercise, hormones, sex and age. Performed By: #### L 502.0250, L100.0100, L501.9910, L500.4100, L501.5101, L500.4050, L503.5510 #### [facility] [address] [place], [address] Cholesterol in LDL [Mass/Vol] 124 mg/dL Normal [facility] Comment on above: Result Comment: Bord qeborz=458-160 mg/dL Higher Nkhs=798 mg/dL or greater Performed By: #### L 502.0250, L100.0100, L501.9910, L500.4100, L501.5101, L500.4050, L503.5510 #### [facility] [address] [place], [place], [phone] Cholesterol in VLDL [Mass/Vol] 23 mg/dL Normal 5-40 [facility] Comment on above: Performed By: #### L 502.0250, L100.0100, L501.9910, L500.4100, L501.5101, L500.4050, L503.5510 #### [facility] [address] [place], [address] Triglyceride [Mass/Vol] 113 mg/dL Normal [facility] Comment on above: Result Comment: The drugs N-Acetylcysteine and Metamizole may falsely depress this assay. Normal range: <150 mg/dL Borderline High: 150-199 mg/dL High: 200-499 mg/dL Very High: >500 mg/dL Performed By: #### L 502.0250, L100.0100, L501.9910, L500.4100, L501.5101, L500.4050, L503.5510 #### [facility] [address] [place], [place], [phone] MCV (mean corpuscular volume ) determinationOrdered By: Danilo Melton on 04-18-2025 MCV (RBC) [Entitic vol] 94.6 fL High 80-94 [facility] Mean corpuscular hemoglobin (MCH) determinationOrdered By: Danilo Melton on 04-18-2025 MCH (RBC) [Entitic mass] 32.0 pg 27.0-32.0 [facility] Mean corpuscular hemoglobin concentration (MCHC) determinationOrdered By: Danilo Melton on 04-18-2025 MCHC (RBC) [Mass/Vol] 33.8 g/dL 32-36 [facility] Mean platelet volume determi nationOrdered By: Danilo Melton on 04-18-2025 Platelet mean volume (Bld) [Entitic vol] 11.8 fL 6.2-12.0 [facility] Monocyte percentageOrdered B y: Danilo Melton on 04-18-2025 Monocytes/100 WBC (Bld) 9.8 % 0-[address] [facility] Neutrophil percentageOrdered By: Danilo Melton on 04-18-2025 Neutrophils/100 WBC (Bld) 47.0 % 47-70 [facility] Nucleated red blood cell per centageOrdered By: Danilo Melton on 04-18-2025 Nucleated RBC/100 WBC (Bld) [Ratio] 0 % 0-5 [facility] PSA,Total - Annual Screenon 04-18-2025 PSA,TOT SCREEN 2.28 ng/mL Normal 0.02-4.00 [facility] Comment on above: Result Comment: This test was performed using the [employer] tPSA method. Measured values of a patient??sample can vary depending on the testing procedure used. PSA values determined on patient samples by different testing procedures cannot be used interchangeably. If there is a change in PSA assays while monitoring therapy, sequential testing should be performed to confirm baseline values. Performed By: #### L 502.0250, L100.0100, L501.9910, L500.4100, L501.5101, L500.4050, L503.5510 #### [facility] [place], [address] Platelet countOrdered By: Efren Melton on 04-18-2025 Platelets (Bld) [#/Vol] 201 10*3/uL 150-450 [facility] Potassium measurement (mass/ volume)Ordered By: Danilo Melton on 04-18-2025 Potassium (Unsp spec) [Mass/Vol] 4.7 mmol/L 3.3-5.1 [facility] RBC Auto (Bld) [#/Vol]Ordere d By: Danilo Melton on 04-18-2025 RBC (Bld) [#/Vol] 5.19 10*6/uL 4.6-6.2 [facility] Random urine creatinine alejandrina urement (mass/volume)Ordered By: Danilo Melton on 04-18-2025 Creatinine Unsp time (U) [Mass/Vol] 228.00 mg/dL 39.00-259.00 [facility] Screening total cholesterol/ high density lipoprotein (HDL) cholesterol ratioOrdered By: Danilo Melton on 04-18-2025 Cholesterol.total/Cholest marcia in HDL [Mass ratio] 4.91 {ratio} [facility] Serum creatinine measurement (mass/volume)Ordered By: Danilo Melton on 04-18-2025 Creatinine [Mass/Vol] 0.92 mg/dL 0.70-1.20 [facility] Serum globulin measurementOr dered By: Danilo Melton on 04-18-2025 Globulin (S) [Mass/Vol] 3.1 g/dL 2.2-4.[address] [facility] Serum glucose measurement (m ass/volume)Ordered By: Danilo Melton on 04-18-2025 Glucose [Mass/Vol] 99 mg/dL 70-99 [facility] Serum or plasma alanine browning otransferase (ALT) measurementOrdered By: Danilo Melton on 04-18-2025 ALT [Catalytic activity/Vol] 102 U/L High <47 [facility] Serum or plasma albumin alejandrina urement (mass/volume)Ordered By: Danilo Melton on 04-18-2025 Albumin [Mass/Vol] 4.2 g/dL 3.4-4.8 [facility] Serum or plasma albumin/glob ulin mass ratioOrdered By: Danilo Melton on 04-18-2025 Albumin/Globulin [Mass ratio] 1.4 {ratio} 0.9-2.4 [facility] Serum or plasma alkaline viri sphatase measurementOrdered By: Danilo Melton on 04-18-2025 ALP [Catalytic activity/Vol] 80 U/L 40-129 [facility] Serum or plasma calcium alejandrina urement (mass/volume)Ordered By: Danilo Melton on 04-18-2025 Calcium [Mass/Vol] 9.7 mg/dL 7.6-11.0 [facility] Serum or plasma cholesterol in HDL measurement (mass/volume)Ordered By: Danilo Melton on 04-18-2025 Cholesterol in HDL [Mass/Vol] 38 mg/dL Low >40 [facility] Comment on above: National Cholesterol Education Program (NCEP) guidelines:<40 mg/dL: Low HDL-cholesterol (major risk factor for CHD)>= 60 mg/dL: High HDL-cholesterol (negative risk factor for CHD)HDL-cholesterol is affected by a number of factors, e.g. smoking, exercise, hormones, sex and age. Serum or plasma cholesterol measurement (mass/volume)Ordered By: Danilo Melton on 04-18-2025 Cholesterol [Mass/Vol] 184 mg/dL <201 [facility] Comment on above: Cholesterol level, D esirable <200 mg/dLBorderline high cholesterol 200-239 mg/dLHigh cholesterol >=240 mg/dLRecommendations of the NCEP Adult Treatment Panel for the following risk-cutoff thresholds for the [place] population. Serum or plasma urea nitroge n measurement (mass/volume)Ordered By: Danilo Melton on 04-18-2025 Urea nitrogen [Mass/Vol] 14 mg/dL 4-19 [facility] Sodium levelOrdered By: Danilo Melton on 04-18-2025 Sodium [Moles/Vol] 139 mmol/L 133-145 [facility] Total proteinOrdered By: Christa Meltno on 04-18-2025 Protein [Mass/Vol] 7.4 g/dL 5.9-8.4 [facility] Triglycerides measurementOrd ered By: Danilo Melton on 04-18-2025 Triglyceride [Mass/Vol] 113 mg/dL <[address] [facility] Comment on above: The drugs N-Acetylcy steine and Metamizole may falsely depress this assay. Normal range: <150 mg/dLBorderline High: 150-199 mg/dLHigh: 200-499 mg/dLVery High: >500 mg/dL Urine albumin measurement wi detection limit of 20 mg/L or less (mass/volume)Ordered By: Danilo Melton on 04-18-2025 Albumin DL <= 20 mg/L (U) [Mass/Vol] 22.0 mg/L NO RANGE EST. [facility] Venous blood ammonia measure mentOrdered By: Danilo Melton on 04-18-2025 Ammonia (P) [Moles/Vol] 20.8 umol/L 16-60 [facility] White blood cell (WBC) count Ordered By: Danilo Melton on 04-18-2025 WBC (Bld) [#/Vol] 7.8 10*3/uL 4.4-11.0 [facility] Elastography Parenchyma/Orga non 12-05-2024 Elastography Parenchyma/Organ [facility] Imaging Services [facility] [address] [place], [place] [address] Elastography Parenchyma/Organ MR#: [id number] Acct: [id number] Name: JULIÁN RUIZ II Rep #: [id number] : 1950 M 73 From: Buck walter MD PCP: Dr. Danilo Melton MD Status: [facility] Study: Elastography Parenchyma/Organ Date of Exam: Exam# [id number] Ordering Dr: Danilo Melton MD -[id number] STUDY: ABDOMINAL ULTRASOUND - ELASTOGRAPHY REASON FOR VISIT: Male, 73 years old. Cirrhosis of the liver. TECHNIQUE: Liver stiffness measurements were obtained on a [email or web address] RS 85 ultrasound machine using a CA 1-7 probe following the SRU guidelines. 3 measurements were obtained using a 2-D-SWE method. TheIQR/M was 12% suggesting a quality data set. TECHNICAL QUALITY: Adequate. COMPARISON: None. FINDINGS: Liver: There is no demonstrated mass lesion. Median liver stiffness measured 10.8 kPa. Abdomen: There is no demonstrated mass lesion. US/Elastography Parenchyma/Organ IMPRESSION: Liver stiffness measures 10.8 kPa compatible with F2-F3 (Mild to moderate liver fibrosis) Metavir score. Electronically Signed: Buck Chaves MD at 14:10 EST Reading Location ID and State: [facility] / [place] , Service support , CC: Dr. Danilo Melton MD Elevator Operator Freight: Signed Normal [facility] Abdomen Limitedon 11-03-[address] [facility] Imaging Services [address] [place] [id number] Abdomen Limited MR#: [id number] Acct: [id number] Name: JULIÁN RUIZ II Rep #: [id number] : 1950 M 73 From: Rei Denson MD PCP: Dr. Danilo Melton MD Status: REG CLI Study: Abdomen Limited Date of Exam: 11/03/24 Exam# [id number] Ordering Dr: Danilo Melton MD -[id number] EXAM: US ABDOMEN LIMITED, RIGHT UPPER QUADRANT CLINICAL INDICATION: RUQ pain after eating, known sludge, repeat testing TECHNIQUE: Real-time ultrasound of the right upper quadrant with image documentation. COMPARISON: Ultrasound liver elastography 05/13/2024, US Abdomen Limited RUQ dated 01/18/2021 FINDINGS: LIVER: Coarse echogenicity of the liver again noted suggestive of cirrhosis. GALLBLADDER: Gallbladder is not well seen. There appear to be multiple small stones within the gallbladder. No gallbladder wall thickening is demonstrated. No pericholecystic fluid. Negative sonographic Elizabeth''s sign. COMMON BILE DUCT: Common bile duct measures 4 mm in diameter nati hepatis. PANCREAS: Unremarkable as visualized. No focal abnormality is demonstrated in the pancreas. No pancreatic ductal dilatation. RIGHT KIDNEY: Normal. There is no hydronephrosis. No shadowing calculus. No focal lesion or perinephric collection is demonstrated. US/Abdomen Limited IMPRESSION: 1. Parenchymal liver disease consistent with cirrhosis. 2. Cholelithiasis. Electronically Signed: Rei Denson MD at 16:44 EST Reading Location ID and State: [address] [place] [address] Tel , Service support , CC: Dr. Danilo Melton MD Elevator Operator Freight: Signed Normal [facility] ABD Limited w/ Elastographyo n 05-13-2024 ABD Limited w/ Elastography [facility] Imaging Services [address] [place] [address] ABD Limited w/ Elastography MR#: [id number] Acct: [id number] Name: JULIÁN RUIZ II Rep #: [id number] : 1950 M 73 From: Willie Mayen MD PCP: Dr. Danilo Melton MD Status: REG CLI Study: ABD Limited w/ Elastography Date of Exam: 04/17 07/09 Exam# [id number] Ordering Dr: Danilo Melton MD -[id number] STUDY: ABDOMINAL ULTRASOUND - ELASTOGRAPHY REASON FOR VISIT: Male, 73 years old. Abnormal liver function tests. TECHNIQUE: Liver stiffness measurements were obtained on a [email or web address] RS 85 ultrasound machine using a CA 1-7 probe following the SRU guidelines. 3 measurements were obtained using a 2-D-SWE method. TheIQR/M was 12% suggesting a quality data set. TECHNICAL QUALITY: Adequate. COMPARISON: 01/18/2021 FINDINGS: Liver: There is no demonstrated mass lesion. Median liver stiffness measured 6.97 kPa. Abdomen: 1.5 cm echogenic area within the gallbladder may represent a stone or tumefactive sludge or polyp. US/ABD Limited w/ Elastography IMPRESSION: Liver stiffness measures 6.97 kPa compatible with F2-F3 Metavir score. Possible gallstone, tumefactive sludge, or polyp. Electronically Signed: Willie Mayen MD at 12:25 EDT , CC: Dr. Danilo Melton MD Elevator Operator Freight: Signed Normal [facility] Vital Signs Date Time Vital Sign Value Performing Clinician Kleveri johanny 12-18-2023 08:57-0500 Body mass index (BMI) [Ratio] 34.56 kg/m2 Mayte Guajardo OUTDOOR ADVERTISING LEASING AGENT Work Phone: [facility] 12-18-2023 08:57-0500 Body weight 106.14 kg Mayte Guajardo NP Work Phone: [facility] 12-18-2023 08:57-0500 Diastolic blood pressure 88 mm[Hg] Mayte Guajardo [employer]DOOR ADVERTISING LEASING [employer]ENT Work Phone: [facility] 12-18-2023 08:57-0500 Heart rate 61 /min Mayte Guajardo OUTDOOR ADVERTISING LEASING AGENT Work Phone: [facility] 12-18-2023 08:57-0500 SaO2% (BldA) [Mass fraction] 95 % Mayte Guajardo OUTDOOR ADVERTISING LEASING AGENT Work Phone: [facility] 12-18-2023 08:57-0500 Systolic blood pressure 130 mm[Hg] Mayte Guajardo OUTDOOR ADVERTISING LEASING AGENT Work Phone: [facility] Encounters Encounter Date Encounter Type Care Provider Facility Start: 04-18-2025 End: 04-18-[address] Danilo Melton MD Work Phone: [facility] Work Phone: Start: 04-18-2025 End: 04-18-[address] Dan[facility] Start: 04-18-2025 End: 04-18-2025 ambulatory Danilo Melton Facility:[facility] Start: 12-05-2024 End: 12-05-2024 ambulatory Danilo Melton Facility:[facility] Start: 11-03-2024 End: 11-03-2024 ambulatory [facility] Facility:[facility] Start: 06-17-2024 End: 06-17-2024 ambulatory MAYTE GUAJARDO Not Available Start: 05-13-2024 End: 05-13-2024 ambulatory Danilo Melton Facility:[facility] Start: 12-18-2023 End: 12-18-2023 Office outpatient visit 25 minutes Mayte Guajardo [employer]DOOR ADVERTISING LEASING [employer]ENT Work Phone: [facility] Comment on above: Seizures (CMS/HCC) ( Primary Dx) Start: 12-18-2023 End: 12-18-2023 ambulatory MAYTE GUAJARDO Not Available Start: 12-17-2023 Chart abstracting Maty gibbs MD Work Phone: [facility] Start: 08-13-2023 Non-patient / Non-visit Dr. Efren Melton Work Phone: [facility] Start: 08-13-2023 End: 08-13-[address] Danilo Melton Work Phone: [facility] Work Phone: Start: 08-13-2023 End: 08-13-[address] [facility] Work Phone: Start: 01-23-2023 Non-patient / Non-visit Dr. Efren Melton Work Phone: [facility] Start: 01-23-2023 End: 01-23-[address] Danilo Melton Work Phone: [facility] Work Phone: Start: 01-23-2023 End: 01-23-[address] [facility] Procedures Date Procedure Procedure Detail Performing Clinician Start: 04-18-2025 Prostate specific an tigen measurement Dr. Danilo Melton MD Work Phone: Comment on above: This test was perfor med using the [employer] tPSA method. Measured values of a patient sample can vary depending on the testing procedure used. PSA values determined on patient samples by different testing procedures cannot be used interchangeably. If there is a change in PSA assays while monitoring therapy, sequential testing should be performed to confirm baseline values. Start: 04-18-2025 Urine microalbumin/creatinine ratio measurement Dr. Danilo Melton MD Work Phone: Plan of Treatment Date Care Activity Detail Author Start: 06-17-2024 End: 06-17-2024 Patient encounter procedure 06/17/2024 9:00 AM EDT Office Visit [facility] [address] [place] [phone] Mayte Guajardo NP [address] [place], [place] [id number] [facility] Start: 12-18-2023 End: 12-18-2023 Patient encounter procedure 12/18/2023 9:00 AM EST Office Visit [facility] [address] [place] [phone] Mayte Guajardo NP [address] [place] [address] [facility] Start: 07-17-2023 Influenza vaccination Influenza Vacc ine (#1) [facility] Start: 2014 Pneumococcal Vaccine : 65+ Years (1 - PCV) Pneumococcal Vaccine: 65+ Years (1 - PCV) [facility] Start: 1950 Screening for malign ant neoplasm of colon [facility] Payers Date Payer Category Payer Self-pay [id number] 2024 Unknown [id number] 2020 Medicare MEDICARE MEDICAR E PART B [id number] 2020-[place] [address] Medicare [id number] 2020 Medicare [id number] 1950 Unknown [id number] 1950 Unknown [id number] 9 Unknown [place] [id number] Unknown [id number] Unknown [id number] Unknown [id number] Unknown [id number] Social History Date Type Detail Facility Start: 10-28-2013 [facility] Start: 1950 Sex Assigned At Male [facility] Start: 10-28-2013 End: 12-15-2023 Tobacco smoking status NHIS Never smoked tobacco [facility] Start: 12-15-2023 Tobacco use and exposure Smokeless tobacco non-user [facility] Start: 12-15-2023 End: 12-18-2023 Alcohol intake Lifetime non-drinker (finding) [facility] Start: 1950 Sex Assigned At Not on file [facility] Start: 12-18-2023 Gender identity Not on file [facility] Start: 12-18-2023 History of Social function [facility] History of Present illness Narrative 12-18-2023 Mayte Guajardo NP - 12/18/2023 9:00 AM EST Note Date & Type Note Facility 12-18-2023 History of Presen t illness Narrative Chief Complaint Patient presents with Seizures Subjective HPI Julián Ruiz, 72 y.o., [facility] Has not had any seizures since last visit and reduction in levetiraceam dosing. Last seizure was a small night event in April 2020, only noted by . Taking levetiracetam 500mg in the am and 750 mg at night and tolerating well. Would like to try reducing further. Denies aura, tremors, twitching, shaking, falls, LOC, numbness/tingling, headaches. Denies any side effects of medication. Denies any change in mood. Not using Pap to treat JOEL. Sleeps well, feels refreashed on waking. Does snore, does not wake gasping or coughing. Regained his weight lost due to knee pain. Does occasionally have numbness/tingling in hands when using machine to refinish furniture, but believes this is related to pressure and is not bothersome. Relates DVT this past fall which he was treated with Eliquis and also several kidney stones. States this is all resolved. Current Outpatient Medications on File Prior to Visit Medication Sig Dispense Refill levETIRAcetam (Keppra) 500 MG tablet Take 500 mg by mouth in the morning. levETIRAcetam (Keppra) 750 MG tablet Take 750 mg by mouth at bedtime metoprolol succinate XL (Toprol-XL) 50 MG 24 hr tablet Take 50 mg by mouth in the morning. [DISCONTINUED] aspirin (Aspirin EC Low Strength) 81 MG EC tablet Take 81 mg by mouth in the morning. [DISCONTINUED] metoprolol tartrate (Lopressor) 50 MG tablet Take 50 mg by mouth 1 (one) time each day at the same time [DISCONTINUED] Ascorbic Acid (vitamin C) 1000 MG tablet Take 1,000 mg by mouth in the morning. [DISCONTINUED] Milk Thistle 175 MG capsule as directed Orally [DISCONTINUED] Multiple Vitamins-Minerals (PreserVision AREDS 2) capsule as directed Orally [DISCONTINUED] zinc gluconate 50 MG tablet Take 50 mg by mouth in the morning. No current facility-administered medications on file prior to visit. Past Medical History: Diagnosis Date High blood pressure (CMS/HCC) JOEL (obstructive sleep apnea) Seizures (CMS/HCC) Past Surgical History: Procedure Laterality Date CATARACT EXTRACTION Bilateral No family history on file. Social History Tobacco Use Smoking status: Never Smokeless tobacco: Never Substance Use Topics Alcohol use: Never Review of Systems General: Patient denies fever, chills, fatigue, weight loss, change in appetite, or sleep disturbance. Allergy/Immunology: Patient denies unusual reactions to medication(s), foods, animals or insects, or frequent infections Ophthalmologic: Patient denies changes in visual acuity, blurry vision, double vision, flashes of light in the visual varghese, or visual field cuts; does possibly have AMD and cataracts but needs new doctor ENT: Patient denies changes in feelings of vertigo, decreased sense of smell, dysphagia, hoarseness of voice; reports general decrease in hearing and occasional tinnitus. Endocrine: Patient denies polyuria, polydipsia, polyphagia, hot/cold intolerance, hair loss, change in hair texture Respiratory: Patient denies SOB, cough, hemoptysis, sputum production, wheezing Cardiovascular: Patient denies chest pain, BRUNO, palpitations, claudication, swelling in hands/feet, orthopnea, PND, syncope Gastrointestinal: Patient denies abdominal pain, changes in bowel habits, dyspepsia, nausea, emesis Hematology: Patient denies easy bruising/bleeding, clots or clotting disorders Genitourinary: Patient denies dysuria, incontinence Musculoskeletal: Patient denies leg cramps, muscle aches, swollen/erythematous joints Skin: Patient denies rashes, hives, photosensitivity Neurologic: Patient denies transient loss of vision, balance difficulty, gait changes, loss of strength, tremor, memory changes, headache, h/o stroke, family h/o neurodegenerative disease Psychiatric: Patient denies feelings of anxiety/depression, hallucinations, delusions, increased stressors, suicidal or homicidal ideation, difficulty with or h/o substance abuse Also see HPI for elements of ROS documented therein and for details of positive findings, which shall supersede the foregoing. Allergies: Codeine, Meloxicam, and Niacin Objective Vitals: 12/18/23 0857 BP: 130/88 Pulse: 61 SpO2: 95% Body mass index is 34.56 kg/m . weight: 234 lb Physical Exam General Exam: Alert, oriented, pleasant, well-appearing, well-nourished, in no acute distress Head: Skull is normocephalic, atraumatic, hair of average texture and distribution Eyes: Eyes with symmetrical alignment, no ptosis, sclera white and clear, conjunctiva pink, PERRLA, EOMI and smooth Ears: Hearing acuity intact to finger rub but generally decreased Nose: Nares patent, septum midline, mucosa pink, no lesions noted Oral Cavity: Oral mucosa pink and moist, dentition intact Neck: Trachea midline, no thyromegaly, no carotid bruit/thrill, supple with full ROM Skin: Warm and dry Heart: Heart rate regular with regular rhythm, crisp S1 and S2, No S3, S4, murmurs, rubs, or splits Lungs: Regular, unlabored, symmetrical chest expansion, lungs clear to auscultation bilaterally with good air movement, no wheezes, rales, rhonchi Musculoskeletal & Spine: Full ROM without tenderness, crepitus, swelling, or deformity in neck, spine, and shoulders; appropriate muscle tone and bulk in all muscle groups, 5/5 strength in bilateral upper and lower extremities, no rigidity noted Peripheral vascular: Extremities without edema, cyanosis, rubor, ulceration, varicosities, or stasis changes, capillary refill < 3 sec, calves nontender to palpation Neurologic: Alert and oriented x 4, recent and remote memory intact, detailed cognitive testing deferred, cranial nerves II - XII grossly intact, no pronator drift noted, mild right hand tremor noted, gait is symmetric with stable base and expected stride, speed, and natural arm swing without shuffle, rapid alternating movements and [id number] intact, sensation intact in all extremities Psych: Appropriately groomed and dressed, makes and maintains eye contact, speech clear, fluent, and organized, thought processes coherent, insight and judgement appropriate Plan 1. Seizures (CMS/HCC) - stable, pt requests reduction in dosing of levetiracetam, discussed risks including possible recurrence of seizure, pt willing to try, asked him to report any recurrence of seizure and he agrees. - levETIRAcetam (Keppra) 500 MG tablet; Take 1 tablet (500 mg) by mouth in the morning and 1 tablet (500 mg) before bedtime. Dispense: 90 tablet; Refill: Pt has been fully educated on their diagnosis, treatment options, follow up plan, and return instructions documented in this encounter [facility] Evaluation note Note Date & Type Note Facility Evaluation note No assessment information availa [facility] Work Phone: Evaluation note Note Date & Type Note Facility Evaluation note Diagnosis Seizures (CMS/HCC)- Primary Other convulsions documented in this encounter [facility] Reason for referral (narrative) Note Date & Type Note Facility Reason for referral (narrative) No reason for referral information available [facility] Work Phone: Chief Complaint and Reason for Visit Chief Complaint STAT Other specified soft tissue disorders Chief Complaint Pain in left leg Summary Purpose Family History No Family History Records FoundNo Family History Records Found Advance Directives No Advanced Directives Records FoundNo Advanced Directives Records Found Additional Source Comments Care Teams (unrecognized sec tion and content) Team Status: Active Member Role Status Dates Dr. Behzad Frost MD Family Provider Active Dr. Danilo Melton MD Primary Care Provider Active Team Status: Active Member Role Status Dates Dr. Danilo Melton MD Primary Care Provider Active Dr. Danilo Vila MD Attending Provider Active Team Status: Inactive Member Role Status Dates Dr. Danilo Melton MD Primary Care Provider, Attending Tay gibson Active Team Status: Inactive Member Role Status Dates Dr. Danilo Melton MD Primary Care Provide r, Attending Provider, Referring Provider Active Team Status: Inactive Member Role Status Dates Dr. Danilo Melton MD Primary Care Provider Active Start: April 18, 2025 End: April 18, 2025 Dr. Danilo Melton MD Attending Provider Active St art: April 18, 2025 End: April 18, 2025 Dr. Danilo Melton MD Referring Provider Active St art: April 18, 2025 End: April 18, 2025 Dr. Bay Gonzalez MD Other Provider Active S tart: April 18, 2025 End: April 18, 2025 Goals (unrecognized section and content) Goals may be documented in a n alternate sectionGoals may be documented in an alternate sectionGoals may be documented in an alternate section Reason for Visit (unrecogniz ed section and content) Reason Comments Seizures (unrecognized sect ion and content) No Status Records FoundNo Status Records Found INFORMATION SOURCE (unrecogn ized section and content) DATE CREATED AUTHOR 06/19/2024 [facility] EPIC DATE CREATED AUTHOR AUTHOR'S ORGANIZ ATION 05/10/2025 [facility] FOR RECORDS PERTAINING TO PATIENTS WHO ARE OR HAVE BEEN ENROLLED IN A CHEMICAL DEPENDENCY/SUBSTANCEABUSE PROGRAM, SOME INFORMATION MAY BE OMITTED. This clinical summary was aggregated from multiple sources. Caution should be exercised in using it in the provision of clinical care. This summary normalizes information from multiple sources, and as a consequence, information in this document may materially change the coding, format and clinical context of patient data. In addition, data may be omitted in some cases. CLINICAL DECISIONS SHOULD BE BASED ON THE PRIMARY CLINICAL RECORDS. [employer] provides no warranty or guarantee of the accuracy or completeness of information in this document.
== END | disposition home or self-care (01) ==
LOC: US 07:16
PROVIDERS: PCP Family Medicine; Referring Provider Family Medicine; Visit Provider Family Medicine
DX: R74.8 Abnormal levels of other serum enzymes (principal)
CPT/HCPCS: 76705; 76981